=== PATIENT | female | born 1975 | race Caucasian/White ===

== ENCOUNTER → 2023-10-19 17:41 | Outpatient (REF) | payer BC, SELFPAY | LOC: HWWDC 17:41 | PROVIDERS: ATTENDING PHYSICIAN Nurse Practitioner Family; FAMILY PHYSICIAN Physician Assistant Medical | DX: Z12.31 Encounter for screening mammogram for malignant neoplasm of breast (principal) | CPT/HCPCS: 77063; 77067 ==

== ENCOUNTER → 2024-05-17 10:20 | Outpatient (REF) | payer BC, SELFPAY | LOC: RAD 10:20 | PROVIDERS: ATTENDING PHYSICIAN Nurse Practitioner Family; FAMILY PHYSICIAN Physician Assistant Medical | DX: S93.402A Sprain of unspecified ligament of left ankle, initial encounter (principal) | CPT/HCPCS: 73610 ==

== ENCOUNTER → 2024-07-18 15:51 | Outpatient (REF) | payer BC, SELFPAY | LOC: MRI 3T 15:51 | PROVIDERS: ATTENDING PHYSICIAN Obstetrics & Gynecology; FAMILY PHYSICIAN Physician Assistant Medical | DX: Z15.01 Genetic susceptibility to malignant neoplasm of breast (principal) | CPT/HCPCS: 77049; A9585 ==

== ENCOUNTER → 2025-03-11 12:43 | Outpatient (REF) | payer BC, SELFPAY | LOC: HWRAD 12:43 | PROVIDERS: ATTENDING PHYSICIAN Physician Assistant Medical | DX: R22.31 Localized swelling, mass and lump, right upper limb (principal) | CPT/HCPCS: 76882 ==